=== PATIENT | female | born 1965 | race Caucasian/White ===

== ENCOUNTER → 2021-04-25 10:52 | Outpatient (CLI) | payer BC, SELFPAY ==
--- NOTE | ~2021-04-25 | MM_ITS ---
EXAMINATION: MM screening [place] BI w katherin HISTORY: Screening mammogram TECHNIQUE: Craniocaudal and mediolateral oblique 3-D tomosynthesis images were obtained and synthetic 2-D images were generated. CAD analysis was submitted and interpreted. COMPARISON: , 04/05/2014 bilateral digital screening mammogram examinations BREAST PARENCHYMAL COMPOSITION: There are scattered areas of fibroglandular density. FINDINGS: There is no evidence of suspicious mass, calcification, or architectural distortion to sugg est malignancy in either breast. There has been no suspicious interval change. IMPRESSION: 1. No mammographic evidence of malignancy. 2. Recommend routine screening mammography in one year. BI-RADS Category 1: Negative Reviewed, dictated and finalized at location A.
--- NOTE | ~2021-04-25 | DEXA_ITS ---
Bone Density Report Name: Berna Gilmore Age: 55 Sex: Female Ethnicity: White Date of : 1965 Indication: osteopenia; height loss; postmenopausal Referring Provider: Dale, Sung Redmond Study: Bone densitometry was performed. Exam Date: April 25, 2021 Accession number: [id number] Bone Density: Region BMD T-score Z-score Classification AP Spine (L1-L4) 0.931 -1.1 0.2 Osteopenia Femoral Neck (Left) 0.681 -1.5 -0.3 Osteopenia Total Hip (Left) 0.882 -0.5 0.3 Normal Femoral Neck (Right) 0.664 -1.7 -0.5 Osteopenia Total Hip (Right) 0.895 -0.4 0.4 Normal Total Hip Mean 0.889 -0.5 0.4 Normal World Health Organization criteria for BMD impression classify patients as: Normal (T-score at or above -1.0), Osteopenia (T-score between -1.0 and -2.5), or Osteoporosis (T-score at or below -2.5). 10-year Fracture Risk(1): Major Osteoporotic Fracture 6.9% Hip Fracture 0.6% Reported Risk Factors: [place] (), Neck BMD=0.664, BMI=38.0 (1) FRAX(R) Version 3.08. Fracture probability calculated for an untreated patient. Fracture probability may be lower if the patient has received treatment. Previous Exams: Region Exam Age BMD T-score BMD Change BMD Change Date g/cm2 vs Baseline vs Previous AP Spine(L1-L4) 04/25/2021 55 0.931 -1.1 0.046 0.046 07/01/2018 52 0.885 -1.5 Total Hip(Left) 04/25/2021 55 0.882 -0.5 0.036 0.036 07/01/2018 52 0.846 -0.8 Total Hip(Right) 04/25/2021 55 0.895 -0.4 0.066 0.066 07/01/2018 52 0.829 -0.9 *Denotes significance at 95% confidence level, LSC for AP Spine = 0.022 g/cm2, LSC for Total Hip = 0.027 g/cm2 Clinical Information Provided by Patient: Patient maximum height was 67.25 Menopause Age: 51 No regular weight bearing exercise Drinks caffeinated beverages Onset of menses at age 10 Number of children 3 Impression: The patient has low bone mass, based on the Right Femoral Neck T-score. The patient has an estimated ten-year risk of hip fracture of 0.6% and an estimated ten-year risk of major fracture of 6.9%, based on the WHO FRAX algorithm. No significant bone loss was observed. Discussion: BONE DENSITY IS LOW AT ONE OR MORE SKELETAL SITES. This patient's lowest T-score is low at one or more skeletal sites. It meets the World Health Organization's (WHO) criteria for ?low bone mass? (T-score between -1.0 and -2.5). The patient's 1
== END ==
PROVIDERS: PCP Family Medicine; Visit Provider Family Medicine
DX: Z12.31 Encounter for screening mammogram for malignant neoplasm of breast (principal); Z13.820 Encounter for screening for osteoporosis; M85.88 Other specified disorders of bone density and structure, other site; M85.852 Other specified disorders of bone density and structure, left thigh; M85.851 Other specified disorders of bone density and structure, right thigh
CPT/HCPCS: 77063; 77067; 77080

== ENCOUNTER 2022-05-14 08:50 | Outpatient (CLI) | payer BC, SELFPAY ==
[2022-05-15 08:30] LABS: Kit Draw Collected
== END 2022-05-14 08:51 | disposition home or self-care (01) ==
LOC: ANHGOSHLAB 08:53
PROVIDERS: PCP Internal Medicine; Visit Provider Clinical Nurse Specialist
DX: E55.9 Vitamin D deficiency, unspecified (principal); Z13.220 Encounter for screening for lipoid disorders; Z13.29 Encounter for screening for other suspected endocrine disorder; Z53.8 Procedure and treatment not carried out for other reasons
CPT/HCPCS: 99199; 36415

== ENCOUNTER → 2022-05-14 09:23 | Outpatient (CLI) | payer BC, SELFPAY ==
--- NOTE | ~2022-05-14 | XR_ITS ---
XR lumbar spine 2-3V DATE: 05/14/2022 10:34 INDICATION: Left back pain, sacroiliac pain. No injury. TECHNIQUE: AP, lateral, coned lateral lumbosacral views COMPARISON: None FINDINGS: Normal alignment. No fracture or bone destruction or spondylolisthesis. The included lower thoracic and lumbar pedicles are intact. There is moderate loss of interspace height throughout the lumbar and lumbosacral spine except for sp urring at L2-3. The sacroiliac joints are intact. Status post cholecystectomy. IMPRESSION: Multilevel moderate degenerative disc disease Reviewed, dictated and finalized at location A. EYOR GEOD[employer]IC
== END ==
PROVIDERS: PCP Clinical Nurse Specialist; Visit Provider Clinical Nurse Specialist
DX: M51.36 Other intervertebral disc degeneration, lumbar region (principal)
CPT/HCPCS: 72100

== ENCOUNTER 2022-06-05 15:09 | Outpatient (CLI) | payer BC, SELFPAY ==
--- NOTE | ~2022-06-05 | MR_ITS ---
EXAMINATION: MR lumbar spine wo con DATE: 06/05/2022 15:49 INDICATION: Low back pain. TECHNIQUE: Magnetic resonance imaging (MRI) of the lumbar spine was performed without intravenous con trast. Sequences included sagittal T2-weighted FSE, sagittal T2-weighted FS FSE, sagittal T1-weighted FSE, and axial T2-weighted FSE. COMPARISON: Lumbar spine radiographs 05/14/2022 FINDINGS: There is 4 mm retrolisthesis of L3 on L4. Vertebral body heights are normal. There is moder ately decreased disc height at L3-L4, mildly decreased disc height at L4-L5, and severely decreased d isc height at L5-S1 with endplate remodeling. The distal spinal cord signal intensity is normal. The conus medullaris is at L1-L2. There is peripheral displacement of the cauda equina at L5 and S1, cons istent with arachnoiditis. The following disc levels are specifically discussed: L1-L2: The disc does not extend beyond the endplate margin. There is mild bilateral facet joint osteo arthritis. There is no neural foraminal stenosis. There is no central canal stenosis. L2-L3: There is a left central protrusion. There is mild right and moderate left facet joint osteoart hritis. There is no neural foraminal stenosis. There is mild central canal stenosis. L3-L4: The disc is bulging and has an annular fissure. There is mild bilateral facet joint osteoarthr itis. There is mild bilateral neural foraminal stenosis. There is mild central canal stenosis. L4-L5: The disc is bulging and has an annular fissure. There is mild bilateral facet joint osteoarthr itis. There is mild bilateral neural foraminal stenosis. There is mild central canal stenosis. L5-S1: The disc is bulging and has an annular fissure. There is severe right and moderate left facet joint osteoarthritis. There is mild bilateral neural foraminal stenosis. There is mild central canal stenosis. IMPRESSION: 1. Severe lower lumbar spondylosis. Reviewed, dictated and finalized at location A. OR CIVIL ENGINEER
== END 2022-06-05 15:10 ==
LOC: MICIMG 15:11
PROVIDERS: PCP Internal Medicine; Visit Provider Clinical Nurse Specialist
DX: M51.36 Other intervertebral disc degeneration, lumbar region (principal); M47.896 Other spondylosis, lumbar region
CPT/HCPCS: 72148

== ENCOUNTER → 2022-06-18 15:43 | Outpatient (CLI) | payer BC, SELFPAY ==
--- NOTE | ~2022-06-18 | MM_ITS ---
EXAMINATION: MM screening [place] BI w katherin HISTORY: Screening TECHNIQUE: Craniocaudal and mediolateral oblique 3-D tomosynthesis images were obtained and synthetic 2-D images were generated. CAD analysis was submitted and interpreted. COMPARISON: Comparison to multiple prior studies sequentially, with oldest reviewed study dated 04/05. BREAST PARENCHYMAL COMPOSITION: There are scattered areas of fibroglandular density. FINDINGS: There is no evidence of suspicious mass, calcification, or architectural distortion to sugg est malignancy in either breast. There has been no suspicious interval change. IMPRESSION: 1. No mammographic evidence of malignancy. 2. Recommend routine screening mammography in one year. BI-RADS Category 1: Negative Reviewed, dictated and finalized at location B. E BROKER
== END ==
PROVIDERS: PCP Internal Medicine; Visit Provider Internal Medicine
DX: Z12.31 Encounter for screening mammogram for malignant neoplasm of breast (principal)
CPT/HCPCS: 77063; 77067

== ENCOUNTER 2023-06-25 09:56 | Outpatient (CLI) | payer BC, SELFPAY ==
[2023-06-25 18:53] LABS: Basophils Absolute Auto 0.1 K/mm3 (0.0-0.1); Basophils Percent Auto 1.3 % (0.2-1.2); Eosinophils Absolute Auto 0.3 K/mm3 (0-0.3); Hematocrit 44.3 % (37.0-47.0); Hemoglobin 13.6 g/dL (12.0-15.0); Immature Granulocyte Absolute 0.02 K/mm3 (0.00-0.031); Immature Granulocyte Percent A 0.3 % (0-0.5); Lymphocytes Absolute Auto 2.63 K/mm3 (0.9-3.2); Lymphocytes Percent Auto 33.8 % (18.3-44.2); Mean Corpuscular HGB Conc 30.7 g/dl (32-36); Mean Corpuscular Hemoglobin 25.6 pg (26-34); Mean Corpuscular Volume 83.3 fl (80-100); Monocytes Absolute Auto 0.7 K/mm3 (0.1-0.6); Monocytes Percent Auto 9.3 % (2.6-8.5); Neutrophils Percent Auto 51.3 % (45.5-73.1); Platelet Count Result 409 k/mm3 (150-375); Red Blood Count 5.32 M/mm3 (4.2-5.4); Red Cell Distribution Width 15.4 % (11.5-14.5); White Blood Count 7.8 K/mm3 (4.5-10.0)
[2023-06-25 19:54] LABS: Vitamin D 25 Hydroxy 48.2 ng/mL
[2023-06-25 20:05] LABS: Alanine Aminotransferase 22 U/L (6-35); Albumin Level 4.4 g/dL (3.5-5.1); Alkaline Phosphatase 104 U/L (38-126); Anion Gap 8 mmol/L (8-16); Aspartate Amino Transferase 31 U/L (14-36); Bilirubin,Total 0.5 mg/dL (0.2-1.3); Blood Urea Nitrogen 16 mg/dL (7-17); Carbon Dioxide 26 mmol/L (22-30); Chloride 104 mmol/L (98-107); Cholesterol 188 mg/dL (0-200); Estimated Glomerular Filt Rate > 60; Glucose 109 mg/dL (65-110); HDL Direct 50 mg/dL; Potassium 4.1 mmol/L (3.4-5.0); Sodium 138 mmol/L (137-145); Triglycerides 94 mg/dL (<150)
[2023-06-25 20:17] LABS: LDL Cholesterol Direct 95 mg/dL
[2023-06-30 20:10] LABS: Apolipoprotein B 85 mg/dL (<90)
== END 2023-06-25 09:57 | disposition home or self-care (01) ==
LOC: ANHGOSHLAB 09:58
PROVIDERS: PCP Internal Medicine; Visit Provider Clinical Nurse Specialist
DX: Z13.29 Encounter for screening for other suspected endocrine disorder (principal); Z13.220 Encounter for screening for lipoid disorders; E55.9 Vitamin D deficiency, unspecified; Z82.49 Family history of ischemic heart disease and other diseases of the circulatory system
CPT/HCPCS: 36415; 80053; 80061; 82172; 82306; 85025

== ENCOUNTER 2023-11-20 15:51 | Outpatient (CLI) | payer BC, SELFPAY ==
--- NOTE | ~2023-11-20 | MM_ITS ---
EXAMINATION: MM screening [place] BI w katherin HISTORY: Screening mammogram TECHNIQUE: Craniocaudal and mediolateral oblique 3-D tomosynthesis images were obtained and synthetic 2-D images were generated. CAD analysis was submitted and interpreted. COMPARISON: 07/06/2022, 04/25/2021 bilateral screening mammogram examinations BREAST PARENCHYMAL COMPOSITION: There are scattered areas of fibroglandular density. FINDINGS: There is no evidence of suspicious mass, calcification, or architectural distortion to sugg est malignancy in either breast. There has been no suspicious interval change. IMPRESSION: 1. No mammographic evidence of malignancy. 2. Recommend routine screening mammography in one year. BI-RADS Category 1: Negative Reviewed, dictated and finalized at location B.
== END 2023-11-20 15:52 | disposition home or self-care (01) ==
LOC: ANHIMG 15:52
PROVIDERS: PCP Internal Medicine; Visit Provider Clinical Nurse Specialist
DX: Z12.31 Encounter for screening mammogram for malignant neoplasm of breast (principal)
CPT/HCPCS: 77063; 77067

== ENCOUNTER 2024-02-13 08:51 | Outpatient (CLI) | payer BC, SELFPAY ==
[2024-02-13 15:16] LABS: Vitamin D 25 Hydroxy 48.3 ng/mL
[2024-02-13 21:24] LABS: Alanine Aminotransferase 21 U/L (6-35); Albumin Level 4.5 g/dL (3.5-5.1); Alkaline Phosphatase 118 U/L (38-126); Anion Gap 10 mmol/L (4-12); Aspartate Amino Transferase 45 U/L (14-36); Bilirubin,Total 0.4 mg/dL (0.2-1.3); Blood Urea Nitrogen 23 mg/dL (7-17); Calcium 9.6 mg/dL (8.4-10.2); Carbon Dioxide 29 mmol/L (22-30); Chloride 100 mmol/L (98-107); Estimated Glomerular Filt Rate > 60; Glucose 91 mg/dL (65-110); Potassium 4.4 mmol/L (3.4-5.0); Sodium 139 mmol/L (137-145)
[2024-02-17 13:28] LABS: Thyroid Peroxidase Antibodies <1 IU/mL (<9)
== END 2024-02-13 08:52 | disposition home or self-care (01) ==
LOC: ANHGOSHLAB 08:53
PROVIDERS: PCP Clinical Nurse Specialist; Visit Provider Clinical Nurse Specialist
DX: R53.83 Other fatigue (principal); I10 Essential (primary) hypertension; E55.9 Vitamin D deficiency, unspecified; F41.9 Anxiety disorder, unspecified; L65.9 Nonscarring hair loss, unspecified
CPT/HCPCS: 36415; 80053; 82306; 82607; 84443; 86376

== ENCOUNTER 2025-01-12 12:55 | Outpatient (CLI) | payer BC, SELFPAY ==
--- NOTE | ~2025-01-12 | MM_ITS ---
EXAMINATION: MM screening [facility] BI w katherin HISTORY: Screening TECHNIQUE: Craniocaudal and mediolateral oblique 3-D tomosynthesis images were obtained and synthetic 2-D images were generated. CAD analysis was submitted and interpreted. COMPARISON: Comparison to multiple prior studies sequentially, with oldest reviewed study dated 08/22. BREAST PARENCHYMAL COMPOSITION: Not dense: There are scattered areas of fibroglandular density. FINDINGS: There is no evidence of suspicious mass, calcification, or architectural distortion to sugg est malignancy in either breast. There has been no suspicious interval change. IMPRESSION: 1. No mammographic evidence of malignancy. 2. Recommend routine screening mammography in one year. BI-RADS Category 1: Negative Reviewed, dictated and finalized at location A.
--- OUTSIDE RECORDS SUMMARY | 2025-01-12 13:00 | XMS_ITS | Encounter Summary ---
Author Organization [facility] Address [address] [place] [address] Care Team Providers Care Team Assembly Line Machine Operator Name Role Phone Flower Jean MD Primary Care Provider Vickie anderson Encounter Details Date Type Department Care Team (Late st Contact Info) Description 08/22/1999 Outpatient Historical [facility] Medicine [address] [place] [id number] Gavin Caicedo MD NO ADDRESS ON FILE Social History Tobacco Use Types Packs/Day Years Used Date Smoking Tobacco: Never Assessed Comments Unknown Sex and Gender Information Value Date Recorded Sex Assigned at Not on file Legal Sex Female 3:52 AM WAX PUMPER Gender Identity Not on file Sexual Orientation Not on file documented as of this encounter Plan of Treatment Not on file documented as of this encounter Visit Diagnoses Not on filedocumented in this encounter Care Teams Team Assembly Line Machine Operator Relationship Specialty Start Date End Date Flower Jean MD PCP - General Family Practice 03/25/19 documented as of this encounter
--- OUTSIDE RECORDS SUMMARY | 2025-01-12 13:00 | XMS_ITS | Encounter Summary ---
Author Organization [facility] Address [address] [place] [address] Care Team Providers Care Senior Sales Consultant Name Role Phone Flower Jean MD Primary Care Provider Vickie anderson Encounter Details Date Type Department Care Team (Latest Contact Info) Description 04/11/2006 Outpatient Historical [facility] Holm, Denilson Kennedy MD NO ADDRESS ON FILE Abnormal Mammogram, Unspecified (Primary Dx) Social History Tobacco Use Types Packs/Day Years Used Date Smoking Tobacco: Never Assessed Comments Unknown Sex and Gender Information Value Date Recorded Sex Assigned at Not on file Legal Sex Female 3:52 AM 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
--- OUTSIDE RECORDS SUMMARY | 2025-01-12 13:00 | XMS_ITS | Clinical Summary ---
Author Organization [facility] Office Center Address [address] [place] [address] Care Team Providers Care Grain Mill Worker Name Role Phone Sung Donahue DO Primary Care Provider [phone]- [phone] Allergies No known active allergies Medications amLODIPine-benazepriL (LOTREL) 10-20 mg per capsule Take 1 capsule by mouth daily 90 capsule 3 02/20/20 21 Active phentermine-topiramat e (Qsymia) 7.5-46 mg capsule, ER multiphase 24 hr Take 1 capsule by mouth daily 30 capsule 2 11/03/19 22 Active Fyavolv 0.5-2.5 mg-mcg per tablet TAKE 1 TABLET BY MOUTH DAILY 28 tablet 11 02/01/[address] (VOLTAREN) 50 mg EC tablet Take 1 tablet (50 mg total) by mouth 2 (two) times a day as needed 12/05/19 24 Active sertraline (ZOLOFT) 100 mg tablet Take 1 tablet (100 mg total) by mouth daily 11/07/19 24 Active amLODIPine (NORVASC) 10 mg tablet Take 1 tablet (10 mg total) by mouth daily Active triamcinolone (KENALOG) 0.1 % ointmentIndications:A rthropod bite, initial encounter Apply topically daily as needed (Rash) 60 g 1 01/01/20 24 Active mupirocin (BACTROBAN) 2 % ointmentIndications:M ultiple excoriations Apply topically daily as needed (open areas) 30 g 3 01/01/20 24 Active tretinoin (RETIN-A) 0.025 % cream Apply topically every other day Apply pea sized amount to entire face every other night 45 g 3 02/17/20 24 Active tretinoin (RETIN-A) 0.05 % creamIndications:Faci al rhytids Apply topically nightly Apply a pea size amount to face nightly 45 g 3 11/17/19 25 026 Active hydroquinone 4 % creamIndications:Post -inflammatory hyperpigmentation Apply topically 2 (two) times a day Apply to dark spot on chest for 3-4 months then stop 28.35 g 3 11/17/19 25 Active Active Problems Problem Noted Date Diagnosed Date Obesity (BMI 30-39.9) 09/16/2019 Insomnia 12/13/2015 Hypertension 11/13/2015 Resolved Problems Problem Noted Date Diagnosed Date Resolved Date Annual physical exam 09/16/2019 021 Sleep deprivation 12/13/2015 03/06/2021 Memory impairment 11/13/2015 09/16/2019 Encounters Date Type Department Care Team Description 11/17/2024 Orders Only [facility] [address] [place] [address] Elvia Miller MD Neoplasm of unspecified behavior of bone, soft tissue, and skin 11/16/2024 11:00 AM CDT Office Visit [facility] Dermatology [address] [place] [address] [address] [place] [address] Elvia Miller MD Facial rhytids (Primary Dx); Post-inflammatory hyperpigmentation; Neoplasm of unspecified behavior of bone, soft tissue, and skin; Milia 11/16/2024 Telephone [facility] Scheduling [address] [place] [address] Elvia Miller MD Prior Auth (Tretinoin 0.05% cream) from Last 3 Months Immunizations Immunization Administration Dates Next Due Influenza, Quadrivalent, Spl it, Preservative Free, Intramuscular 03/31/2019 Influenza, Unspecified 04/06/2020 Surgical History Surgery Date Site/Laterality Comments [place] CHOLECYSTECTOMY Cholecystectomy - (Added by TW Conv) TUBAL LIGATION Medical History Medical History Date Comments Insomnia Insomnia - (Adde d by Conv) Sleep deprivation Sleep deprivat ion - (Added by Conv) Family History Medical History Relation Name Comments No Known Problems Brother 1 No Known Problems Brother 2 No Known Problems Father No Known Problems Maternal Grandfather No Known Problems Maternal Grandmother Parkinsonism Mother Parkinson disea se, symptomatic - (Added by Conv) No Known Problems Paternal Grandfather No Known Problems Paternal Grandmother Relation Name Status Comments Brother 1 Alive Brother 2 Alive Father Maternal Grandfather Maternal Grandmother Mother Alive Paternal Grandfather Paternal Grandmother Social History Tobacco Use Types Packs/Day Years Used Date Smoking Tobacco: Never Alcohol Use Standard Drinks/Week Comments Yes 0 (1 standard drink = 0.6 oz pur e alcohol) AUDIT-C Answer Date Recorded Q1: How often do you have a drink containing alc ohol? 2-4 times a month 09/16/2019 Q2: How many drinks containi ng alcohol do you have on a typical day when you are drinking? 1 or 2 09/16/2019 Frequency of Binge Drinking Not on file 09/04 PHQ-2 Answer Date Recorded PHQ-2 Total Score (If total score is 3 or more points, staff should administer the PHQ-9) 0 02/19/2021 Personal Safety Answer Date Recorded Getting School Help Needed Not on file 09/19 Comments Unknown Sex and Gender Information Value Date Recorded Sex Assigned at Not on file 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:32 PM CHIEF ENGINEER Gender Identity Female 05/03/2024 4:46 PM CDT Sexual Orientation Not on file Obstetrics History Last Filed Vital Signs Vital Sign Reading Time Taken Comments Blood Pressure 120/78 03/06/2021 9:26 AM CDT Pulse 86 03/06/2021 9:26 AM CDT Temperature 36.2 C (97.1 F) 03/06/2021 9:26 AM CDT Respiratory Rate 16 03/06/2021 9:26 AM CDT Oxygen Saturation 99% 03/06/2021 9:26 AM CDT Inhaled Oxygen Concentration - - Weight 107 kg (236 lb) 03/06/2021 9:26 AM CDT Height 170.2 cm (5' 7.01) 03/06/2021 9:26 AM CD T Body Mass Index 36.95 03/06/2021 9:26 AM CDT Plan of Treatment Health Maintenance Due Date Last Done Comments Colon Cancer Screening-Colonoscopy 1965 Hepatitis C Screening 1965 DTaP/Tdap/Td Vaccine (1 - Tdap) 1974 Hepatitis B Screening 1981 Depression Screening 02/19/2022 02/19/2021, 09/16/19 Cervical Cancer Screening 03/06/2022 03/06/2021 Regular Well Visit/Exam 18-64 03/06/2022 03/06/2021, 02/19/2021, 09/16/2019 Breast Cancer Screening-Mammogram 04/25/2022 04/25/2021, 07/01/2019, 07/01/2019, Additional history exists Covid-19 Vaccine ( season) 2024 01/23/2021 Influenza Vaccine (Season Ended) 2025 05/08/2020, 04/06/2020, 03/31/2019 Zoster Vaccine Completed 09/30/2020, 05/22/2020 Pneumococcal vaccine <65 Aged Out No longer eligible based on patient's age to complete this topic Procedures Procedure Name Priority Date/Time Associated Diagnosis Comments SURGICAL PATHOLOGY Routine 11/16/2024 12:00 AM CDT Neoplasm of unspecified behavior of bone, soft tissue, and skin SCREENING MAMMOGRAM Schedule Routine, Read Routine (OP Routine) 04/25/2021 PAP AND HIGH RISK HPV, REFLEX TO GENOTYPING Routine 03/06/2021 9:32 AM CDT Encounter for well woman exam with routine gynecological exam from Last 3 Months or Most Recently Relevant to Health Maintenance Results * Surgical pathology (11/16/2024 12:00 AM CDT) Tissue (Skin, shave biopsy) 11/16/2024 11/17/2024 8:59 AM CDT Narrative [facility] - 11/18/2024 12:56 PM CDT PSYCHIATRIC results best viewed via link to PDF [facility] [address] [place] [address], [address] [address] [email or web address] Note to Patients: This report may contain a detailed description of human tissue sent by a health care provider to the laboratory for pathologic evaluation. The content of this report is essential for diagnosis and may provide important critical findings. This information may be unfamiliar to patients to review without a medical professional present. It is advised that the patient review this report in the presence of a health care provider who can answer questions and explain the details. FINAL REPORT Patient Information: PATIENT NAME: JIMMY OWEN SEX: F : 1965 (Age: 59) Specimen Information: COLLECTED: 11/16/2024 RECEIVED: 11/17/2024 REPORTED: 11/18/2024 Submitting Physician Information: Elvia Torres M.D. [facility], [address] [place] [address] [address] [place] [address], DERMATOPATHOLOGY REPORT RESULTS DIAGNOSIS: SKIN, POSTERIOR NECK, SHAVE BIOPSY: LICHEN SIMPLEX CHRONICUS, EXCORIATED sxt/lac By this signature, I attest that the above diagnosis is based upon my personal examination of the slides(and/or other material indicated in the diagnosis). Chio Casey M.D. Report Electronically Reviewed and Signed Out By Chio Casey M.D. 11/18/2024 12:56:57 CLINICAL INFORMATION R/O BCC SPECIMEN DATA MICROSCOPIC DESCRIPTION: There is hyperkeratosis, psoriasiform epidermal hyperplasia, thickening of the papillary dermis by coarse collagen bundles arranged in vertical streaks and a superficial perivascular inflammatory cell infiltrate. (L28.0) GROSS DESCRIPTION: Received in a formalin-containing bottle is a superficial fragment of pale min, finely scaling, and hair-bearing skin measuring 0.8 by 0.7 by 0.2 cm. The surgical margin is inked blue. The specimen is sectioned into 3 pieces and submitted entirely in a single cassette. Due to shrinkage, measurements may be different than those at the time of procedure. exr/dxv Clerical Data A; 12539 The characteristics of special, immunohistochemical, and immunofluorescence stains and in-situ hybridization tests performed by the [facility] were deemed acceptable in ongoing quality control engineer measures and in compliance with regulations drawn from the Clinical Laboratory Improvement Act up3988 (CLIA '88). Control reactions for all stains performed were deemed adequate and appropriate by a pathologist prior to evaluation of patient tissue. Some diagnoses were rendered with the assistance of laboratory-developed tests utilizing analyte-specific reagents; the performance characteristic of these tests were determined by [facility] and are not cleared or approved by the [place] Food an Drug administration. Laboratory developed test may only be performed in a facility that is certified by the [facility] as a high-complexity laboratory under CLIA '88. These tests are used for clinical purposes and are not investigational. Elvia Torres MD LAB PATHOLOGY O RDERABLES Final Result [facility] [address] [place] [id number] * Screening Mammogram (04/25/2021) Anatomical Region Laterality Modality Breast N/A Mammography Historical Provider MD KEATING MAMMO PROCEDURES Graciela l Result * Pap and High Risk HPV, reflex to Genotyping (03/06/2021 9:32 AM CDT) CLINICAL INFORMATION: [facility] Comment:Routine exam LMP [facility] [employer] [facility] Comment:2018 Previous Pap [facility] Comment:INFORMATION NOT PROV IDED Prev. Bx [facility] [employer] [facility] Comment:INFORMATION NOT PROV IDED SOURCE: [facility] Comment:Cervix, Endocervix Pap, specimen adequacy [facility] Comment: Satisfactory for evaluation. Endocervical/transformation zone component absent. HPV interp [facility] Comment:Negative for intraep ithelial lesion or malignancy. Engineer System Administrator [facility] Comment: STEPHEN, CT(ASCP) CT screening location: [place] [address] [place] [address] Comment [facility] [employer] [facility] Comment: EXPLANATORY NOTE: The Pap is a screening test for cervical cancer. It is not a diagnostic test and is subject to false negative and false positive results. It is most reliable when a satisfactory sample, regularly obtained, is submitted with relevant clinical findings and history, and when the Pap result is evaluated along with historic and current clinical information. Human papillomavirus DNA, High Risk E6/E7 Not Detected NOT DETECTED [facility] Comment: Not Detected High Risk HPV types (16,18,31,33,35,39,45,51,52, 56,58,59,66,68) were not detected. Other HPV types which cause anogenital lesions may be present. The significance of the other types of HPV in malignant processes has not been established. Methodology: Real Time PCR Swab 03/06/2021 9:32 AM CDT 03/07/2021 4:17 AM CDT Kathy Temple LAB CYTOLOGY ORDERABLES Final Result [facility] [address] [place] [address] [facility] [address] [place] [address] from Last 3 Months or Most Recently Relevant to Health Maintenance Insurance [employer] [place] [facility] [place] [address] [facility] Care Teams Grain Mill Worker Relationship Specialty Start Date End Date Sung Donahue DO PCP - General Internal Medicine 05/16/22
--- OUTSIDE RECORDS SUMMARY | 2025-01-12 13:00 | XMS_ITS | Encounter Summary ---
Author Organization [place] [employer] [facility] Address [address] [place] [address] Care Team Providers Care Associate Professor Of Biology Name Role Phone Flower Jean MD Primary Care Provider Vickie anderson Encounter Details Date Type Department Care Team (Latest Contact Info) Description 02/13/2004 Outpatient Historical [facility] Holm, Denilson Kennedy MD NO ADDRESS ON FILE SCREENING MAMM-MAILG NEOPL-OTHER (Primary Dx) Social History Tobacco Use Types Packs/Day Years Used Date Smoking Tobacco: Never Assessed Comments Unknown Sex and Gender Information Value Date Recorded Sex Assigned at Not on file Legal Sex Female 3:52 AM SANITOR Gender Identity Not on file Sexual Orientation Not on file documented as of this encounter Plan of Treatment Not on file documented as of this encounter Visit Diagnoses Diagnosis Other screening mammogram- Primary documented in this encounter Care Teams Associate Professor Of Biology Relationship Specialty Start Date End Date Flower Jean MD PCP - General Family Practice 03/25/19 documented as of this encounter
--- OUTSIDE RECORDS SUMMARY | 2025-01-12 13:00 | XMS_ITS | Encounter Summary ---
Author Organization [facility] Address [address] [place] [address] Care Team Providers Care Adjunct Instructor Of Women'S Studies Name Role Phone Flower Jean MD Primary Care Provider Vickie anderson Encounter Details Date Type Department Care Team (Latest Contact Info) Description 03/25/[address] 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
--- OUTSIDE RECORDS SUMMARY | 2025-01-12 13:00 | XMS_ITS | Encounter Summary ---
Author Organization [facility] Address [address] [place] [address] Care Team Providers Care Concrete Mixing Truck Driver Name Role Phone Flower Jean MD Primary Care Provider Vickie andreson Encounter Details Date Type Department Care Team (Late st Contact Info) Description 11/14/2001 Outpatient Historical [facility] Medicine 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
--- OUTSIDE RECORDS SUMMARY | 2025-01-12 13:00 | XMS_ITS | Encounter Summary ---
Author Organization [facility] Address [address] [place] [address] Care Team Providers Care Dairy Clerk Name Role Phone Flower Jean MD Primary Care Provider Vickie anderson Encounter Details Date Type Department Care Team (Late st Contact Info) Description 01/26/2001 Outpatient Historical [facility] Medicine 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
--- OUTSIDE RECORDS SUMMARY | 2025-01-12 13:00 | XMS_ITS | Encounter Summary ---
Author Organization [facility] Address 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
--- OUTSIDE RECORDS SUMMARY | 2025-01-12 13:00 | XMS_ITS | Encounter Summary ---
Author Organization [facility] Address [address] [place] [address] Care Team Providers Care College Of Education Dean Name Role Phone Flower Jean MD Primary Care Provider Vickie anderson Encounter Details Date Type Department Care Team (Late st Contact Info) Description 12/19/2000 Outpatient Historical [facility] Medicine 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
--- OUTSIDE RECORDS SUMMARY | 2025-01-12 13:00 | XMS_ITS | Encounter Summary ---
Author Organization [facility] Address 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 Gender Identity Not on file Sexual Orientation Not on file documented as of this encounter Plan of Treatment Not on file documented as of this encounter Procedures Procedure Name Priority Date/Time Associated Diagnosis Comments MAMMO SCREEN BILAT W OR WO CAD Routine 04/19/2008 11:24 AM CDT documented in this encounter Results * MAMMO DIGITAL SCREEN BILAT (04/19/2008 11:24 AM CDT) Anatomical Region Laterality Modality Breast Bilateral Other 04/19/2008 11:2 4 AM CDT Narrative 04/20/2008 10:49 AM CDT [facility] [address], [place] [address] Admit Date: 04/19/2008 JIMMY OWEN Sex: F Admit Prov: DENILSON CHAVEZ Date: 1965 Primary Care Prov: ANA GUTIERREZ CMRN: [id number] [id number] Ordering Prov: DENILSON CHAVEZ Accession Number: [id number] Interpretation BILATERAL DIGITAL MAMMOGRAM WITH COMPUTER-ASSISTED DIAGNOSIS There is moderate density fibroglandular tissue in each breast and the pattern is relatively symmetrical. There is no evidence of a dominant mass, malignant type calcification or other radiographic manifestation of malignancy. No change since 02/08. The CAD system was utilized. IMPRESSION No radiographic evidence of malignancy. Assessment BIRADS: 1-Negative Recommendation: Normal interval follow-up Dictated by: WALDO MCKENNA Electronically signed by: WALDO MCKENNA 04/20/2008 10:49 Transcribed: 04/20/2008 10:49 CO Procedure Note Waldo Mckenna - 04/20/2008 [facility] [address] [place], [place] [address] Admit Date: 04/19/2008 OWENJIMMY Sex: F Admit Prov: KATHYDENILSON Marcy Date: 1965 Primary Care Prov: ANA GUTIERREZ CMRN: [id number] [id number] [facility] Ordering Prov: DENILSON CHAVEZ Interpretation BILATERAL DIGITAL MAMMOGRAM WITH COMPUTER-ASSISTED DIAGNOSIS There is moderate density fibroglandular tissue in each breast andthe pattern is relatively symmetrical. There is no evidence of a dominantmass, malignant type calcification or other radiographic manifestation of malignancy. No change since 02/08. The CAD system was utilized. IMPRESSION No radiographic evidence of malignancy. Assessment BIRADS: 1-Negative Recommendation: Normal interval follow-up Dictated by: WALDO MCKENNA Electronically signed by: WALDO MCKENNA 04/20/2008 10:49 Transcribed: 04/20/2008 10:49 CO Denilson Chavez MD MAMMO ORDERABLES Graciela l Result documented in this encounter Visit Diagnoses Diagnosis Other screening mammogram documented in this encounter Care Teams Adapted Physical Education Teacher Relationship Specialty Start Date End Date Flower Jean MD PCP - General Family Practice 03/25/19 documented as of this encounter
--- OUTSIDE RECORDS SUMMARY | 2025-01-12 13:00 | XMS_ITS | Referral Summary ---
Author Organization [facility] Address [address] [place] [address] Care Team Providers Care Campground Cleaning Attendant Name Role Phone Sung Donahue DO Primary Care Provider [phone] Encounters Date Type Department Care Team Description 11/17/2024 Orders Only [facility] [address] [place] [address] Elvia Miller MD Neoplasm of unspecified behavior of bone, soft tissue, and skin 11/16/2024 Telephone [facility] Scheduling [address] [place] [address] Elvia Miller MD Prior Auth (Tretinoin 0.05% cream) 11/16/2024 11:00 AM CDT Office Visit [facility] Dermatology [address] [place] [address] Elvia Miller MD Facial rhytids (Primary Dx); Post-inflammatory hyperpigmentation; Neoplasm of unspecified behavior of bone, soft tissue, and skin; Milia from Last 3 Months Allergies No known active allergies Medications amLODIPine-benazepriL [...] deprivation 12/13/2015 03/06/2021 Memory impairment 11/13/2015 09/16/2019 Immunizations Immunization Administration Dates Next Due Influenza, Quadrivalent, Spl it, Preservative Free, Intramuscular 03/31/2019 Influenza, Unspecified 04/06/2020 Social History Tobacco Use Types Packs/Day Years [...] on file 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:32 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 Gender Identity Female 05/03/2024 4:46 PM CDT Sexual Orientation Not on file Last Filed Vital Signs Vital Sign Reading [...] 03/06/2021 9:26 AM CDT Plan of Treatment Not on file Procedures Procedure Name Priority Date/Time Associated Diagnosis [...] shave biopsy) 11/16/2024 11/17/2024 8:59 AM CDT [facility] - 11/18/2024 12:56 PM CDT EPIC results best viewed via link to PDF [facility] Dermatopathology [place] [id number], [address], [place] [address] [email or web address] Note to Patients: This report may contain [...] 11/18/2024 Submitting Physician Information: Elvia Torres M.D. [facility], [address] [place] [address], DERMATOPATHOLOGY REPORT RESULTS DIAGNOSIS: SKIN, POSTERIOR NECK, [...] time of procedure. exr/dxv Clerical Data A; 85425 The characteristics of special, immunohistochemical, and immunofluorescence stains and in-situ hybridization tests performed by the [facility] were deemed acceptable in ongoing machined parts quality inspector measures and in compliance with regulations drawn from the Clinical Laboratory Improvement Act fu4378 (CLIA '88). Control reactions for all stains performed were deemed adequate and appropriate by a pathologist prior to evaluation of patient tissue. Some diagnoses were rendered with the assistance of laboratory-developed tests utilizing analyte-specific reagents; the performance characteristic of these tests were determined by [facility] and are not cleared or approved by the [place] Food an Drug administration. Laboratory developed test may only be performed in a facility that is certified by the [facility] as a high-complexity laboratory under CLIA '88. These tests are used for clinical purposes and are not investigational. Elvia Torres MD LAB PATHOLOGY O RDERABLES Final Result [facility]MATOP[facility]OLOGY CENTER [address] [place] [address] * Screening Mammogram (04/25/2021) Anatomical Region Laterality Modality Breast N/A Mammography Historical Provider [facility] MAMMO PROCEDURES Graciela l Result * Pap and High Risk HPV, reflex to Genotyping (03/06/2021 9:32 AM CDT) CLINICAL INFORMATION: [employer] [facility] Comment:Routine exam LMP [employer] [facility] Comment:2018 Previous Pap [employer] [facility] Comment:INFORMATION NOT PROV IDED Prev. Bx [employer] [facility] Comment:INFORMATION NOT PROV IDED SOURCE: [employer] [facility] Comment:Cervix, Endocervix Pap, specimen adequacy [employer] [facility] Comment: Satisfactory for evaluation. Endocervical/transformation zone component absent. HPV interp [facility] Comment:Negative for intraep ithelial lesion or malignancy. Ambulatory Service Representative [facility] Comment: STEPHEN, CT(ASCP) CT screening location: [place] [address] [place] [address] Comment [facility] Comment: EXPLANATORY NOTE: The Pap is a [...] High Risk E6/E7 Not Detected NOT DETECTED [facility] Comment: Not Detected High Risk HPV types (16,18,31,33,35,39,45,51,52, 56,58,59,66,68) were not detected. Other HPV types which cause anogenital lesions may be present. The significance of the other types of HPV in malignant processes has not been established. Methodology: Real Time PCR Swab 03/06/2021 9:32 AM CDT 03/07/2021 4:17 AM CDT Kathy Temple LAB CYTOLOGY ORDERABLES Final Result [place] [address] [address] [place] [address] [facility] [address] [place] [phone] from Last 3 Months or Most Recently Relevant to Health Maintenance Insurance ON LICENSE OF [facility] ON LICENSE OF [facility] Care Teams Campground Cleaning Attendant Relationship Specialty Start Date End Date Sung Donahue DO PCP - General Internal Medicine 05/16/22
--- OUTSIDE RECORDS SUMMARY | 2025-01-12 13:00 | XMS_ITS | Encounter Summary ---
Author Organization [facility] Address [address] [place] [address] Care Team Providers Care Modeling Director Name Role Phone Flower Jean MD Primary Care Provider Vicike anderson Encounter Details Date Type Department Care Team (Late st Contact Info) Description 02/06/2000 Outpatient Historical [facility] Medicine 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
--- OUTSIDE RECORDS SUMMARY | 2025-01-12 13:00 | XMS_ITS | Encounter Summary ---
Author Organization [facility] Address [address] [place] [address] Care Team Providers Care Scan Coordinator Name Role Phone Flower Jean MD Primary Care Provider Vickie anderson Encounter Details Date Type Department Care Team (Latest Contact Info) Description 03/04/2005 Outpatient Historical 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
--- OUTSIDE RECORDS SUMMARY | 2025-01-12 13:00 | XMS_ITS | Encounter Summary ---
Author Organization [facility] Address [address] [place] [address] Care Team Providers Care Planning Director Name Role Phone Flower Jean MD Primary Care Provider Vickie anderson Encounter Details Date Type Department Care Team (Late st Contact Info) Description 09/26/2001 Outpatient Historical [facility] Medicine 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
--- OUTSIDE RECORDS SUMMARY | 2025-01-12 13:00 | XMS_ITS | Encounter Summary ---
Author Organization [facility] Address [address] [place] [address] Care Team Providers Care Progressive Die Maker Name Role Phone Flower Jean MD Primary Care Provider Vickie anderson Encounter Details Date Type Department Care Team (Late st Contact Info) Description 06/19/2002 Outpatient Historical [facility] Medicine 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
--- OUTSIDE RECORDS SUMMARY | 2025-01-12 13:00 | XMS_ITS | Encounter Summary ---
Author Organization [facility] Address 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
--- OUTSIDE RECORDS SUMMARY | 2025-01-12 13:00 | XMS_ITS | Clinical Summary ---
Author Organization [facility] Address [address] [place] [address] Phone Care Team Providers Care Survival Specialist Name Role Phone Flower Jean MD Primary Care Provider Vickie cannonle Allergies No known active allergies Medications diclofenac sodium (VOLTAREN) 1 % gelIndications:Bi lateral hand pain Apply 2 Grams to affected area 4 times daily as needed for Pain. 100 Gram 1 9 Active amLODIPine-benaze pril (LOTREL) 10-20 mg capsuleIndication s:Benign hypertension TAKE 1 CAPSULE BY MOUTH EVERY DAY 90 Capsule 1 0 Active Active Problems Problem Noted Date Diagnosed Date Benign hypertension 03/31/2019 Immunizations Immunization Administration Dates Next Due INFLUENZA VACCINE QUADRIVALENT 3 YR UP PF IM Family History Medical History Relation Name Comments Healthy Brother 1 Healthy Brother 2 Stroke Father Lung Cancer Maternal Grandmother Hypertension Mother Healthy Son 1 Healthy Son 2 Relation Name Status Comments Brother 1 Alive Brother 2 Alive Father Maternal Grandfather Maternal Grandmother Mother Alive Paternal Grandfather Paternal Grandmother Son 1 Alive Son 2 Alive Social History Tobacco Use Types Packs/Day Years Used Date Smoking Tobacco: Never Smokeless Tobacco: Never Alcohol Use Standard Drinks/Week Comments Yes 1 (1 standard drink = 0.6 oz pur e alcohol) Comments Unknown Sex and Gender Information Value Date Recorded Sex Assigned at Not on file Legal Sex Female 3:52 AM GANG WORKER Gender Identity Not on file Sexual Orientation Not on file Occupation Industry Job Start Date Job End Date Not on file Not on file Not on file Not on file Last Filed Vital Signs Vital Sign Reading Time Taken Comments Blood Pressure 138/78 05/26/2019 9:51 AM GANG WORKER Pulse 79 05/26/2019 9:51 AM GANG WORKER Temperature - - Respiratory Rate - - Oxygen Saturation 98% 05/26/2019 9:51 AM GANG WORKER Inhaled Oxygen Concentration - - Weight 95.7 kg (211 lb) 05/26/2019 9:51 AM GANG WORKER Height 170.2 cm (5' 7) 05/26/2019 9:51 AM GANG WORKER Body Mass Index 33.05 05/26/2019 9:51 AM GANG WORKER Plan of Treatment Health Maintenance Due Date Last Done Comments DTAP/TDAP/TD VACCINES (1 - Tdap) 1982 HPV/Cotest (21-29) 1984 CERVICAL CANCER SCREENING 1993 HPV/Cotest (30-65) 1993 PAP SMEAR 1993 COLORECTAL SCREENING 2008 Colorectal Cancer Screening 2008 FIT-DNA Q 3 years 2008 FIT/FOBT Q 1 year 2008 Flex Sig/CT Colonography Q 5 years 2008 ZOSTER VACCINE (1 of 2) 2013 BREAST CANCER SCREENING 07/01/2020 07/01/20 19, 09/10/2011, 07/20/2009, Additional history exists INFLUENZA VACCINE (#1) 2025 03/31/2019 RSV VACCINE (60+ or ) (1 - 1-dose 75+ series) 2038 Procedures Procedure Name Priority Date/Time Associated Diagnosis Comments MAMMO 3D ALIN SCREEN BILAT W OR WO CAD Routine 07/01/2019 12:01 PM GANG WORKER Screening mammogram, encounter for from Last 3 Months or Most Recently Relevant to Health Maintenance Results * MAMMO SCRN BILAT 3D ALIN W OR WO CAD (07/01/2019 12:01 PM GANG WORKER) Anatomical Region Laterality Modality Breast Bilateral Mammography 07/01/2019 12:0 1 PM GANG WORKER Impressions 07/02/2019 12:01 PM GANG WORKER IMPRESSION: Negative bilateral screening mammogram. Recommend routine followup. OVERALL FINAL ASSESSMENT: BI-RADS CATEGORY 1: Negative DICTATION LOCATION: [facility] Narrative 07/02/2019 12:01 PM GANG WORKER BILATERAL SCREENING DIGITAL MAMMOGRAMS WITH 3D TOMOSYNTHESIS AND CAD DATE: 07/01/2019 12:01 PM HISTORY: Annual screening study. COMPARISON: 09/10/2011, 02/13/2004. TECHNIQUE: A bilateral screening mammogram was performed. Low-dose full-field digital breast tomosynthesis examination was performed with 2D and 3D acquisitions. Examination is read in conjunction with computer aided detection. BREAST COMPOSITION: Scattered fibroglandular densities. FINDINGS: No new masses, suspicious calcifications, or areas of asymmetry or distortion are identified. The images were reviewed using the CAD system. Procedure Note Radha Lee MD - 07/02/2019 BILATERAL SCREENING DIGITAL MAMMOGRAMS WITH 3D TOMOSYNTHESIS AND CAD DATE: 07/01/2019 12:01 PM HISTORY: Annual screening study. COMPARISON: 09/10/2011, 02/13/2004. TECHNIQUE: A bilateral screening mammogram was performed. Low-dose full-field digital breast tomosynthesis examination was performed with 2D and 3D acquisitions. Examination is read in conjunction with computer aided detection. BREAST COMPOSITION: Scattered fibroglandular densities. FINDINGS: No new masses, suspicious calcifications, or areas of asymmetry or distortion are identified. The images were reviewed using the CAD system. IMPRESSION: Negative bilateral screening mammogram. Recommend routine followup. OVERALL FINAL ASSESSMENT: BI-RADS CATEGORY 1: Negative DICTATION LOCATION: [facility] Flower Jean MD MAMMO ORDERABLES Final Result from Last 3 Months or Most Recently Relevant to Health Maintenance Insurance [facility] [employer] Care Teams Survival Specialist Relationship Specialty Start Date End Date Flower Jean MD PCP - General Family Practice 03/25/19
== END 2025-01-12 12:56 | disposition home or self-care (01) ==
PROVIDERS: PCP Clinical Nurse Specialist; Visit Provider Clinical Nurse Specialist
DX: Z12.31 Encounter for screening mammogram for malignant neoplasm of breast (principal)
CPT/HCPCS: 77063; 77067

== ENCOUNTER 2025-06-16 01:34 | Day surgery (SDC) | payer BC, SELFPAY ==
[2025-05-30 11:03] VITALS: BMI 37.3
--- OUTSIDE RECORDS SUMMARY | 2025-06-16 01:36 | XMS_ITS | Encounter Summary ---
Author Organization [facility] Address [address] [place] [address] Care Team Providers Care Validation Architect Name Role Phone Flower Jean MD Primary Care Provider Vickie anderson Encounter Details Date Type Department Care Team (Late st Contact Info) Description 09/26/2001 Outpatient Historical [facility] Medicine [id number] [place] [address]. [address] [place] [phone] Gavin Caicedo MD NO ADDRESS ON FILE Social History Tobacco Use Types Packs/Day Years Used Date Smoking Tobacco: Never Assessed Comments Unknown Sex and Gender Information Value Date Recorded Sex Assigned at Not on file Legal Sex Female 3:52 AM STEAM TRAIN DRIVER Gender Identity Not on file Sexual Orientation Not on file documented as of this encounter Plan of Treatment Not on file documented as of this encounter Visit Diagnoses Not on filedocumented in this encounter Care Teams Validation Architect Relationship Specialty Start Date End Date Flower Jean MD PCP - General Family Practice 03/25/19 documented as of this encounter
--- OUTSIDE RECORDS SUMMARY | 2025-06-16 01:36 | XMS_ITS | Encounter Summary ---
Author Organization [facility] Address [address] [place] [address] Care Team Providers Care Engraver Flatware Name Role Phone Flower Jean MD Primary Care Provider Vickie anderson Encounter Details Date Type Department Care Team (Late st Contact Info) Description 08/22/1999 Outpatient Historical [facility] [place] Medicine [id number] [place] [address]. [address] [place] [phone] Gavin Caicedo MD NO ADDRESS ON FILE Social History Tobacco Use Types Packs/Day Years Used Date Smoking Tobacco: Never Assessed Comments Unknown Sex and Gender Information Value Date Recorded Sex Assigned at Not on file Legal Sex Female 3:52 AM FLANGER Gender Identity Not on file Sexual Orientation Not on file documented as of this encounter Plan of Treatment Not on file documented as of this encounter Visit Diagnoses Not on filedocumented in this encounter Care Teams Engraver Flatware Relationship Specialty Start Date End Date Flower Jean MD PCP - General Family Practice 03/25/19 documented as of this encounter
--- OUTSIDE RECORDS SUMMARY | 2025-06-16 01:36 | XMS_ITS | Encounter Summary ---
Author Organization [facility] Address [address] [place] [address] Care Team Providers Care Behavioral Health Clinician Name Role Phone Flower Jean MD Primary Care Provider Vickie anderson Encounter Details Date Type Department Care Team (Late st Contact Info) Description 12/19/2000 Outpatient Historical [facility] Medicine [id number] [place] [address]. [address] [place] [phone] Gavin Caicedo MD NO ADDRESS ON FILE Social History Tobacco Use Types Packs/Day Years Used Date Smoking Tobacco: Never Assessed Comments Unknown Sex and Gender Information Value Date Recorded Sex Assigned at Not on file Legal Sex Female 3:52 AM NUTRITION THERAPIST Gender Identity Not on file Sexual Orientation Not on file documented as of this encounter Plan of Treatment Not on file documented as of this encounter Visit Diagnoses Not on filedocumented in this encounter Care Teams Behavioral Health Clinician Relationship Specialty Start Date End Date Flower Jean MD PCP - General Family Practice 03/25/19 documented as of this encounter
--- OUTSIDE RECORDS SUMMARY | 2025-06-16 01:36 | XMS_ITS | Encounter Summary ---
Author Organization [facility] Address [address] [place] [address] Care Team Providers Care Warehouse General Laborer Name Role Phone Flower Jean MD Primary Care Provider Vickie anderson Encounter Details Date Type Department Care Team (Latest Contact Info) Description 02/13/[address] [facility] Holm, Denilson Kennedy MD NO ADDRESS ON FILE SCREENING MAMM-MAILG NEOPL-OTHER (Primary Dx) Social History Tobacco Use Types Packs/Day Years Used Date Smoking Tobacco: Never Assessed Comments Unknown Sex and Gender Information Value Date Recorded Sex Assigned at Not on file Legal Sex Female 3:52 AM DISPLAY DIRECTOR Gender Identity Not on file Sexual Orientation Not on file documented as of this encounter Plan of Treatment Not on file documented as of this encounter Visit Diagnoses Diagnosis Other screening mammogram- Primary documented in this encounter Care Teams Warehouse General Laborer Relationship Specialty Start Date End Date Flower Jean MD PCP - General Family Practice 03/25/19 documented as of this encounter
--- OUTSIDE RECORDS SUMMARY | 2025-06-16 01:36 | XMS_ITS | Clinical Summary ---
Author Organization [facility] Address [address] [place] [address] Care Team Providers Care Nurses' Association Executive Director Name Role Phone Sung Donahue DO Primary Care Provider [phone]- [phone] Allergies No known active allergies Medications amLODIPine-benazepriL [...] Encounters Date Type Department Care Team Description 06/07/2025 11:00 AM RESIST COATER DEVELOPER Clinical Support [facility] [address] [place] [address] [address] [place] [address] Elvia Turner MD Lentigines (Primary Dx) 05/17/2025 Telephone [facility] [address] [place] [address] [address] [place] [address] Marlyn Garibay RMA 04/19/2025 10:15 AM CDT Clinical Support [facility] [address] [place] [address] [address] [place] [address] Elvia Turner MD Facial rhytids (Primary Dx); Lentigines from Last 3 Months Immunizations Immunization Administration Dates Next Due Influenza, Quadrivalent, Spl it, Preservative Free, Intramuscular 03/31/2019 Influenza, Unspecified 04/06/2020 Surgical History Surgery Date Site/Laterality Comments [place] CHOLECYSTECTOMY Cholecystectomy - (Added by TW Conv) TUBAL LIGATION Medical History Medical History Date Comments Insomnia Insomnia - (Capri guy by Conv) Sleep deprivation Sleep deprivat ion [...] on file 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:32 PM RESIST COATER DEVELOPER Gender Identity Female 05/03/2024 4:46 PM CDT [...] 07/01/2019, 07/01/2019, Additional history exists Covid-19 Vaccine (2024- season) 2025 02/20/2021, 01/23/2021 Influenza Vaccine (#1) 2025 , 05/01/2022, 07/23/2021, Additional history exists Zoster Vaccine Completed 09/30/2020, 05/22/2020 Pneumococcal vaccine <65 Aged Out No longer eligible based on patient's age to complete this topic Procedures Procedure Name Priority Date/Time Associated Diagnosis Comments SCREENING MAMMOGRAM Schedule Routine, Read Routine (OP Routine) 04/25/2021 PAP AND HIGH RISK HPV, REFLEX TO GENOTYPING Routine 03/06/2021 9:32 AM CDT Encounter for well woman exam with routine gynecological exam from Last 3 Months or Most Recently Relevant to Health Maintenance Results * Screening Mammogram (04/25/2021) Anatomical Region Laterality Modality Breast N/A Mammography us Historical Provider MD KEATING MAMMO PROCEDURES Graciela l Result * Pap and High Risk HPV, reflex to Genotyping (03/06/2021 9:32 AM CDT) CLINICAL INFORMATION: [facility] Comment:Routine exam LMP [facility] Comment:2018 Previous Pap [facility] Comment:INFORMATION NOT PROV IDED Prev. Bx [facility] Comment:INFORMATION NOT PROV IDED SOURCE: [facility] Comment:Cervix, Endocervix Pap, specimen adequacy [facility] Comment: Satisfactory for evaluation. Endocervical/transformation zone component absent. HPV interp [facility] Comment:Negative for intraep ithelial lesion or malignancy. Breading Machine Tender [facility] Comment: STEPHEN, CT(ASCP) CT screening location: [place] [address] [place] [address] Comment [facility] Comment: EXPLANATORY NOTE: The Pap is a [...] High Risk E6/E7 Not Detected NOT DETECTED [facility] [employer] [facility]Yaya pradhan [place] Comment: Not Detected High Risk HPV types (16,18,31,33,35,39,45,51,52, 56,58,59,66,68) were not detected. Other HPV types which cause anogenital lesions may be present. The significance of the other types of HPV in malignant processes has not been established. Methodology: Real Time PCR Swab 03/06/2021 9:32 AM CDT 03/07/2021 4:17 AM CDT Kathy Temple LAB CYTOLOGY ORDERABLES Final Result [place] [address] [place] [address] [facility] [place] [address] [facility] [place] [phone] from Last 3 Months or Most Recently Relevant to Health Maintenance Insurance [facility] Care Teams Nurses' Association Executive Director Relationship Specialty Start Date End Date Sung Donahue DO PCP - General Internal Medicine 05/16/22
--- OUTSIDE RECORDS SUMMARY | 2025-06-16 01:36 | XMS_ITS | Encounter Summary ---
Author Organization [employer] Address [address] [place] [address] Care Team Providers Care Stockroom Worker Name Role Phone Flower Jean MD Primary Care Provider Vickie anderson Encounter Details Date Type Department Care Team (Latest Contact Info) Description 03/25/2006 Outpatient Historical [facility] Holm, Denilson Kennedy MD NO ADDRESS ON FILE Other Screening Mammogram (Primary Dx) Social History Tobacco Use Types Packs/Day Years Used Date Smoking Tobacco: Never Assessed Comments Unknown Sex and Gender Information Value Date Recorded Sex Assigned at Not on file Legal Sex Female 3:52 AM CHECK VIEWER Gender Identity Not on file Sexual Orientation Not on file documented as of this encounter Plan of Treatment Not on file documented as of this encounter Visit Diagnoses Diagnosis Other screening mammogram- Primary documented in this encounter Care Teams Stockroom Worker Relationship Specialty Start Date End Date Flower Jean MD PCP - General Family Practice 03/25/19 documented as of this encounter
--- OUTSIDE RECORDS SUMMARY | 2025-06-16 01:36 | XMS_ITS | Encounter Summary ---
Author Organization [facility] Address [address] [place] [address] Care Team Providers Care Line Maintenance Supervisor Name Role Phone Flower Jean MD Primary Care Provider Vickie anderson Encounter Details Date Type Department Care Team (Late st Contact Info) Description 11/14/2001 Outpatient Historical [facility] Medicine [id number] [place] [address]. [address] [place] [phone] Gavin Caicedo MD NO ADDRESS ON FILE Social History Tobacco Use Types Packs/Day Years Used Date Smoking Tobacco: Never Assessed Comments Unknown Sex and Gender Information Value Date Recorded Sex Assigned at Not on file Legal Sex Female 3:52 AM DIRECTOR OF FEDERAL SALES Gender Identity Not on file Sexual Orientation Not on file documented as of this encounter Plan of Treatment Not on file documented as of this encounter Visit Diagnoses Not on filedocumented in this encounter Care Teams Line Maintenance Supervisor Relationship Specialty Start Date End Date Flower Jean MD PCP - General Family Practice 03/25/19 documented as of this encounter
--- OUTSIDE RECORDS SUMMARY | 2025-06-16 01:36 | XMS_ITS | Encounter Summary ---
Author Organization [facility] Address [address] [place] [address] Care Team Providers Care Nut Sorter Name Role Phone Flower Jean MD Primary Care Provider Vickie anderson Encounter Details Date Type Department Care Team (Late st Contact Info) Description 10/07/2003 Outpatient [facility] Division of Neurology [address] [place] [address]., [address] [address] Carmen Marion MD Social History Tobacco Use Types Packs/Day Years Used Date Smoking Tobacco: Never Assessed Comments Unknown Sex and Gender Information Value Date Recorded Sex Assigned at Not on file Legal Sex Female 3:52 AM ANALYSIS CONSULTANT Gender Identity Not on file Sexual Orientation Not on file documented as of this encounter Plan of Treatment Not on file documented as of this encounter Visit Diagnoses Not on filedocumented in this encounter Care Teams Nut Sorter Relationship Specialty Start Date End Date Flower Jean MD PCP - General Family Practice 03/25/19 documented as of this encounter
--- OUTSIDE RECORDS SUMMARY | 2025-06-16 01:36 | XMS_ITS | Clinical Summary ---
Author Organization [facility] Address [address] [place] [address] Phone Care Team Providers Care Photocopier Technician Name Role Phone Flower Jean MD Primary Care Provider Letyvai lable Allergies No known active allergies Medications diclofenac [...] on file Legal Sex Female 3:52 AM LOGISTICS PROGRAM MANAGER Gender Identity Not on file Sexual Orientation Not on file Occupation Industry Job Start Date Job End Date Not on file Not on file Not on file Not on file Last Filed Vital Signs Vital Sign Reading Time Taken Comments Blood Pressure 138/78 05/26/2019 9:51 AM LOGISTICS PROGRAM MANAGER Pulse 79 05/26/2019 9:51 AM LOGISTICS PROGRAM MANAGER Temperature - - Respiratory Rate - - Oxygen Saturation 98% 05/26/2019 9:51 AM LOGISTICS PROGRAM MANAGER Inhaled Oxygen Concentration - - Weight 95.7 kg (211 lb) 05/26/2019 9:51 AM LOGISTICS PROGRAM MANAGER Height 170.2 cm (5' 7) 05/26/2019 9:51 AM LOGISTICS PROGRAM MANAGER Body Mass Index 33.05 05/26/2019 9:51 AM LOGISTICS PROGRAM MANAGER Plan of Treatment Health Maintenance Due Date [...] OR WO CAD Routine 07/01/2019 12:01 PM LOGISTICS PROGRAM MANAGER Screening mammogram, encounter for from Last 3 Months or Most Recently Relevant to Health Maintenance Results * MAMMO SCRN BILAT 3D ALIN W OR WO CAD (07/01/2019 12:01 PM LOGISTICS PROGRAM MANAGER) Anatomical Region Laterality Modality Breast Bilateral Mammography 07/01/2019 12:0 1 PM LOGISTICS PROGRAM MANAGER Impressions 07/02/2019 12:01 PM LOGISTICS PROGRAM MANAGER IMPRESSION: Negative bilateral screening mammogram. Recommend routine followup. OVERALL FINAL ASSESSMENT: BI-RADS CATEGORY 1: Negative DICTATION LOCATION: [facility] Narrative 07/02/2019 12:01 PM LOGISTICS PROGRAM MANAGER BILATERAL SCREENING DIGITAL MAMMOGRAMS WITH 3D TOMOSYNTHESIS [...] ASSESSMENT: BI-RADS CATEGORY 1: Negative DICTATION LOCATION: [facility] Flower Jean MD MAMMO ORDERABLES Final Result from Last 3 Months or Most Recently Relevant to Health Maintenance Insurance [facility] [employer] Care Teams Photocopier Technician Relationship Specialty Start Date End Date Flower Jean MD PCP - General Family Practice 03/25/19
--- OUTSIDE RECORDS SUMMARY | 2025-06-16 01:36 | XMS_ITS | Encounter Summary ---
Author Organization [facility] Address [address] [place] [address] Care Team Providers Care Railroad Dispatcher Name Role Phone Flower Jean MD Primary Care Provider Vickie anderson Encounter Details Date Type Department Care Team (Late st Contact Info) Description 02/06/2000 Outpatient Historical [facility] Medicine [id number] [place] [address]. [address] [place] [phone] Gavin Caicedo MD NO ADDRESS ON FILE Social History Tobacco Use Types Packs/Day Years Used Date Smoking Tobacco: Never Assessed Comments Unknown Sex and Gender Information Value Date Recorded Sex Assigned at Not on file Legal Sex Female 3:52 AM MALTHOUSE LABORER Gender Identity Not on file Sexual Orientation Not on file documented as of this encounter Plan of Treatment Not on file documented as of this encounter Visit Diagnoses Not on filedocumented in this encounter Care Teams Railroad Dispatcher Relationship Specialty Start Date End Date Flower Jean MD PCP - General Family Practice 03/25/19 documented as of this encounter
--- OUTSIDE RECORDS SUMMARY | 2025-06-16 01:36 | XMS_ITS | Encounter Summary ---
[facility] Address [address] [place] [address] Care Team Providers Care Parts Back Counter Man Name Role Phone Flower Jean MD Primary Care Provider Vickie anderson Encounter Details Date Type Department Care Team (Latest Contact Info) Description 03/04/2005 Outpatient Historical [facility] Holm, Denilson Kennedy MD NO ADDRESS ON FILE SCREENING MAMM-MAILG NEOPL NEC (Primary Dx) Social History Tobacco Use Types Packs/Day Years Used Date Smoking Tobacco: Never Assessed Comments Unknown Sex and Gender Information Value Date Recorded Sex Assigned at Not on file Legal Sex Female 3:52 AM ASSEMBLER SHOW MOTOR Gender Identity Not on file Sexual Orientation Not on file documented as of this encounter Plan of Treatment Not on file documented as of this encounter Visit Diagnoses Diagnosis Other screening mammogram- Primary documented in this encounter Care Teams Parts Back Counter Man Relationship Specialty Start Date End Date Flower Jean MD PCP - General Family Practice 03/25/19 documented as of this encounter
--- OUTSIDE RECORDS SUMMARY | 2025-06-16 01:36 | XMS_ITS | Encounter Summary ---
Author Organization [facility] Address [address] [place] [address] Care Team Providers Care Field Supervisor Seed Production Name Role Phone Flower Jean MD Primary [...] on file Legal Sex Female 3:52 AM CHANNEL DEVELOPMENT DIRECTOR Gender Identity Not on file Sexual [...] AM CDT Narrative 04/20/2008 10:49 AM CDT [facility] [address] [place], [place] [address] Admit Date: 04/19/2008 JIMMY OWEN Sex: F Admit Prov: DENILSON CHAVEZ Date: 1965 Primary Care Prov: ANA GUTIERREZ CMRN: [id number] [id number] [facility] Ordering Prov: DENILSON CHAVEZ Accession Number: [id number] Interpretation BILATERAL DIGITAL MAMMOGRAM WITH COMPUTER-ASSISTED DIAGNOSIS [...] CO Procedure Note Waldo Mckenna - 04/20/2008 [id number] [place], [place] [address] Admit Date: 04/19/2008 OWENJIMMY Sex: F Admit Prov: DENILSON CHAVEZ Date: 1965 Primary Care Prov: NAA GUTIERREZ CMRN: [id number] [facility] [id number] [facility] Ordering Prov: KATHY DENILSON Vidal Interpretation BILATERAL DIGITAL MAMMOGRAM WITH COMPUTER-ASSISTED DIAGNOSIS [...] mammogram documented in this encounter Care Teams Field Supervisor Seed Production Relationship Specialty Start Date End Date Flower Jean MD PCP - General Family Practice 03/25/19 documented as of this encounter
--- OUTSIDE RECORDS SUMMARY | 2025-06-16 01:36 | XMS_ITS | Encounter Summary ---
Author Organization [facility] Address [address] [place] [address] Care Team Providers Care Family Resource Management Specialist Name Role Phone Flower Jean MD Primary Care Provider Vickie anderson Encounter Details Date Type Department Care Team (Latest Contact Info) Description 04/11/2006 Outpatient Historical [facility] Holm, Denilson Kennedy MD NO ADDRESS ON FILE Abnormal Mammogram, Unspecified (Primary Dx) Social History Tobacco Use Types Packs/Day Years Used Date Smoking Tobacco: Never Assessed Comments Unknown Sex and Gender Information Value Date Recorded Sex Assigned at Not on file Legal Sex Female 3:52 AM COIL TAPER Gender Identity Not on file Sexual Orientation Not on file documented as of this encounter Plan of Treatment Not on file documented as of this encounter Visit Diagnoses Diagnosis Abnormal mammogram, unspecified- Primary documented in this encounter Care Teams Family Resource Management Specialist Relationship Specialty Start Date End Date Flower Jean MD PCP - General Family Practice 03/25/19 documented as of this encounter
--- OUTSIDE RECORDS SUMMARY | 2025-06-16 01:36 | XMS_ITS | Encounter Summary ---
Author Organization [facility] Address [address] [place] [address] Care Team Providers Care Gas Check Pad Maker Name Role Phone Flower Jean MD Primary Care Provider Vickie anderson Encounter Details Date Type Department Care Team (Latest Contact Info) Description 09/19/1999 Outpatient Historical [facility] Holm, Denilson Kennedy MD NO ADDRESS ON FILE Other screening mammogram (Primary Dx) Social History Tobacco Use Types Packs/Day Years Used Date Smoking Tobacco: Never Assessed Comments Unknown Sex and Gender Information Value Date Recorded Sex Assigned at Not on file Legal Sex Female 3:52 AM OVERNIGHT HOUSEPERSON Gender Identity Not on file Sexual Orientation Not on file documented as of this encounter Plan of Treatment Not on file documented as of this encounter Visit Diagnoses Diagnosis Other screening mammogram- Primary documented in this encounter Care Teams Gas Check Pad Maker Relationship Specialty Start Date End Date Flower Jean MD PCP - General Family Practice 03/25/19 documented as of this encounter
--- OUTSIDE RECORDS SUMMARY | 2025-06-16 01:36 | XMS_ITS | Encounter Summary ---
Author Organization [facility] Address [address] [place] [address] Care Team Providers Care Salesperson Used Cars Name Role Phone Flower Jean MD Primary Care Provider Vickie anderson Encounter Details Date Type Department Care Team (Late st Contact Info) Description 06/19/2002 Outpatient Historical [facility] [id number] [place] [address]. [address] [place] [phone] Gavin Caicedo MD NO ADDRESS ON FILE Social History Tobacco Use Types Packs/Day Years Used Date Smoking Tobacco: Never Assessed Comments Unknown Sex and Gender Information Value Date Recorded Sex Assigned at Not on file Legal Sex Female 3:52 AM GRADUATE ADVISOR Gender Identity Not on file Sexual Orientation Not on file documented as of this encounter Plan of Treatment Not on file documented as of this encounter Visit Diagnoses Not on filedocumented in this encounter Care Teams Salesperson Used Cars Relationship Specialty Start Date End Date Flower Jean MD PCP - General Family Practice 03/25/19 documented as of this encounter
--- OUTSIDE RECORDS SUMMARY | 2025-06-16 01:36 | XMS_ITS | Encounter Summary ---
Author Organization [facility] Address [address] [place] [address] Care Team Providers Care Glass Smoother Name Role Phone Flower Jean MD Primary Care Provider Vickie anderson Encounter Details Date Type Department Care Team (Late st Contact Info) Description 01/26/2001 Outpatient Historical [facility] Medicine [id number] [place] [address]. [address] [place] [phone] Gavin Caicedo MD NO ADDRESS ON FILE Social History Tobacco Use Types Packs/Day Years Used Date Smoking Tobacco: Never Assessed Comments Unknown Sex and Gender Information Value Date Recorded Sex Assigned at Not on file Legal Sex Female 3:52 AM WESTERN PHILOSOPHY PROFESSOR Gender Identity Not on file Sexual Orientation Not on file documented as of this encounter Plan of Treatment Not on file documented as of this encounter Visit Diagnoses Not on filedocumented in this encounter Care Teams Glass Smoother Relationship Specialty Start Date End Date Flower Jean MD PCP - General Family Practice 03/25/19 documented as of this encounter
[2025-06-16 09:17] VITALS: BP 128/77; PULSE 91; RESP 18; TEMP 36.1; O2SAT 98
--- NOTE | 2025-06-16 09:22 | P.PNAN_ITS ---
Anes - Initial Pre Proc Eval Procedure: Operation Date: 06/16/25 10:30 Proposed Procedures p Screening Colonoscopy - Capo Leo MD Date/Time: 06/16/25 09:22 Surgeon: Capo Leo MD Pre Op Diagnosis: Screening Patient Data Age: 59 Gender: F Height: 1.68 m Weight: 102.4 kg Last Vital Signs Temp 97 F L 06/16/25 09:17 Pulse 91 06/16/25 09:17 Resp 18 06/16/25 09:17 BP 128/77 06/16/25 09:17 Pulse Ox 98 06/16/25 09:17 O2 Del Method Room Air 06/16/25 09:17 Allergies Allergy/AdvReac Type Severity Reaction Status Date / Time No Known Allergies Allergy Verified 06/16/25 09:16 Home Medications ?Medication ?Instructions ?Recorded ?Confirmed ?Type cyclobenzaprine 5 mg tablet 5 mg PO TID PRN muscle spa sm #20 12/03/22 06/06/25 Rx tabs diclofenac sodium 50 mg 50 mg PO BID #180 tabs 02/1006/06/25 Rx tablet,delayed release bupropion HCl 300 mg 24 hr tablet, 300 mg PO QAM #90 t abs 04/13/25 06/06/25 Rx extended release (Wellbutrin XL) alprazolam 0.5 mg tablet (Xanax) 0.5 mg PO DAILY PRN a nxiety #30 06/01/25 06/06/25 Rx tabs dextromethorphan-guaifenesin 5 10 ml PO ONCE 06/06/25 06/06/25 History mg-100 mg/5 mL oral liquid (Delsym Cough-Chest Congestion DM) fluticasone propionate 50 1 spray intranasal Q12H #16 mL 06/06/25 06/06/25 Rx mcg/actuation nasal spray,suspension (Flonase Allergy Relief) amlodipine 10 mg-benazepril 20 mg See Rx Instructions .Route 06/13/25 Rx capsule .COMPLEX #90 caps Patient hx anesthesia problems: none Family hx anesthesia problems: none Results Review: All pre-operative results and documents have been reviewed as part of the pre- operative evaluation. [facility] Past Medical History Medical History Degenerative disc disease, lumbar Spinal stenosis Scalp lesion Vitamin D deficiency Screening for lipoid disorders Screening for endocrine disorder Surgical History Surgical History History of cholecystectomy Family History Family History Grandparent Family history of obesity Cerebrovascular accident Mother Hypertension Patient's mother is in good health Sibling Patient's brother is in good health Father Cerebrovascular accident, Onset Age: 70 Social History Social History Smoking status: Never smoker Alcohol intake: current Alcohol use details: socially Substance use type: does not use Lack of Transportation: No Lack of Food: Never True Current Housing: I Have Housing Concerned About Future Housing: No Difficulty Paying Gas/Electric Bills: No Difficulty Paying for Meds: No Currently Unemployed: No Education: Bachelor's Degree Difficulty w/ Childcare or Family Care: No Living arrangements: with family [facility] Final PreProcedure Day of Procedure 06/16/25 09:22 Patient weight: normal Heart: regular rate and rhythm Lungs: clear to auscultation Airway: Mallampati scale class II Neurological: alert and oriented Last oral intake: >/= 8 hours ASA classification: II Emergent: no Anesthetic plan: proceed Anesthesia type and monitoring: general GIVS and standard monitoring Results Review: All pre-operative results and documents have been reviewed as part of the pre- operative evaluation. Informed Consent: The patient's anesthetic plan and its attendant risks and benefits were discussed with the patient/family/POA. Questions were solicited and answers provided to the satisfaction of the patient/family/POA.
[2025-06-16] MEDS: LACTATED RINGERS 1,000 ML 150 ML IV CONT (09:26)
--- NOTE | 2025-06-16 09:49 | PM.HPGS ---
History of Present Illness History of Present Illness Consent: Risks, benefits, and alternatives have been discussed and questions answered. Patient agrees to proceed with procedure. Chief complaint: Screening Narrative: Berna Gilmore is a 59 year old female here for screening colonoscopy, last one 10 years ago Review of Systems Review of Systems: All systems reviewed & are unremarkable except as noted in HPI and below PMFSH Past Medical History Medical History Degenerative disc disease, lumbar Spinal stenosis Scalp lesion Vitamin D deficiency Screening for lipoid disorders Screening for endocrine disorder Surgical History Surgical History History of cholecystectomy Family History Family History Grandparent Family history of obesity Cerebrovascular accident Mother Hypertension Patient's mother is in good health Sibling Patient's brother is in good health Father Cerebrovascular accident, Onset Age: 70 Social History Social History Smoking status: Never smoker Alcohol intake: current Alcohol use details: socially Substance use type: does not use Lack of Transportation: No Lack of Food: Never True Current Housing: I Have Housing Concerned About Future Housing: No Difficulty Paying Gas/Electric Bills: No Difficulty Paying for Meds: No Currently Unemployed: No Education: Bachelor's Degree Difficulty w/ Childcare or Family Care: No Living arrangements: with family Meds Home Medications and Allergies Home Medications ?Medication ?Instructions ?Recorded ?Confirmed ?Type cyclobenzaprine 5 mg tablet 5 mg PO TID PRN muscle spasm #20 12/03/22 06/06/25 Rx tabs diclofenac sodium 50 mg 50 mg PO BID #180 tabs 02/10/25 06/06/25 Rx tablet,delayed release bupropion HCl 300 mg 24 hr tablet, 300 mg PO QAM #90 tabs 04/13/25 06/06/25 Rx extended release (Wellbutrin XL) alprazolam 0.5 mg tablet (Xanax) 0.5 mg PO DAILY PRN anxiety #30 06/01/25 06/06/25 Rx tabs dextromethorphan-guaifenesin 5 10 ml PO ONCE 06/06/25 06/06/25 History mg-100 mg/5 mL oral liquid (Delsym Cough-Chest Congestion DM) fluticasone propionate 50 1 spray intranasal Q12H #16 mL 06/06/25 06/06/25 Rx mcg/actuation nasal spray,suspension (Flonase Allergy Relief) amlodipine 10 mg-benazepril 20 mg See Rx Instructions .Route 06/13/25 Rx capsule .COMPLEX #90 caps Allergies Allergy/AdvReac Type Severity Reaction Status Date / Time No Known Allergies Allergy Verified 06/16/25 09:16 Vital Signs Vital Signs - 24 hr 06/16/25 09:17 Temperature 97 F L Pulse Rate 91 Respiratory Rate 18 Blood Pressure 128/77 Pulse Oximetry 98 Oxygen Delivery Room Air Exam Const: General: comfortable and no acute distress HENMT: Face/Nose/Sinus: Normal nares present Eyes: General: appearance normal, both eyes and all related structures Neck: Neck: no JVD Resp: Auscultation: clear to auscultation bilaterally Cardio: Rate: regular rate Rhythm: regular rhythm GI: Inspection: non-distended GI Palp: Yes Soft to palpation Skin: General skin exam: normal color Extrem: General: normal to inspection Psych: Mental Status: mental status grossly normal Assessment and Plan Assessment and plan (1) Screening for colon cancer: Code(s): Z12.11 - Encounter for screening for malignant neoplasm of colon Status: Acute Assessment and Plan: colonoscopy
[2025-06-16 10:04] VITALS: BP 94/46; PULSE 69; RESP 12; O2SAT 99
[2025-06-16 10:14] VITALS: BP 112/69; PULSE 74; RESP 16; O2SAT 100
[2025-06-16 10:24] VITALS: BP 108/73; PULSE 69; RESP 15; O2SAT 100
== END 2025-06-16 10:37 | disposition home or self-care (01) ==
PROVIDERS: PCP Clinical Nurse Specialist; Referring Provider Clinical Nurse Specialist; Visit Provider Internal Medicine Gastroenterology
PROC: 0DJD8ZZ Inspection of Lower Intestinal Tract, Via Natural or Artificial Opening Endoscopic (ICD-10-PCS; CPT 45378; principal; 2025-06-16 10:30)
DX: Z12.11 Encounter for screening for malignant neoplasm of colon (principal); K64.8 Other hemorrhoids; E55.9 Vitamin D deficiency, unspecified; M51.369 Other intervertebral disc degeneration, lumbar region without mention of lumbar back pain or lower extremity pain; M48.061 Spinal stenosis, lumbar region without neurogenic claudication; Z90.49 Acquired absence of other specified parts of digestive tract
CPT/HCPCS: 45378; J2704; J7120